=== PATIENT | female | born 1985 | race Caucasian/White ===

== ENCOUNTER → 2019-11-25 | Outpatient (CLI) | payer BC, OTHER ==
[~2019-11-25] MED LIST: APAP500 PO; IBUPROFEN 600600 M1 PO; LOMOTIL TABLET1 EACH PO; MELATONIN3 MG PO; PRENATAL; ZOFRAN ODT4 MG PO
== END ==
LOC: LAB 07:57
PROVIDERS: ATTEND Nurse Practitioner
DX: J02.9 Acute pharyngitis, unspecified (principal); R53.83 Other fatigue; Z20.828 Contact with and (suspected) exposure to other viral communicable diseases